=== PATIENT | male | born 1995 | race Caucasian/White ===

== ENCOUNTER 2021-04-09 00:45 | Emergency (ER) | payer SELFPAY ==
[~2021-04-09] VITALS: Ht 165.1 cm; Wt 59.0 kg
[2021-04-09 00:45] VITALS: BP 124/82
[2021-04-09] MEDS ORDERED: PERM60CR4 TP (00:58)
== END 2021-04-09 01:06 | disposition home or self-care (01) ==
LOC: ER 00:47
DX: S50.862A Insect bite (nonvenomous) of left forearm, initial encounter (principal); S50.861A Insect bite (nonvenomous) of right forearm, initial encounter; W57.XXXA Bitten or stung by nonvenomous insect and other nonvenomous arthropods, initial encounter; Y93.89 Activity, other specified; Y92.89 Other specified places as the place of occurrence of the external cause; Y99.8 Other external cause status